=== PATIENT | male | born 2000 | race Caucasian/White ===

== ENCOUNTER 2022-05-04 17:43 | Emergency (ER) | payer MEDICAID, SELFPAY ==
[2022-05-04 17:55] VITALS: BP 121/75; PULSE 116; RESP 25; TEMP 36.1; O2SAT 100; BMI 16.0
--- NOTE | 2022-05-04 17:57 | ED_ITS ---
HPI - SOB/Dyspnea General Chief Complaint: Dyspnea Stated Complaint: asthma,sob Time Seen by Provider: 05/04/22 18:23 Related Data Allergies Allergy/AdvReac Type Severity Reaction Status Date / Time No Known Allergies Allergy Verified 05/04/22 17:57 [facility] Social History Social History Advance Directives: No Advance Directives Information Provided: No Physical Exam Vital Signs: Vital Signs: Last Vital Signs Temp 97.0 F 05/04/22 17:55 Pulse 116 H 05/04/22 17:55 Resp 25 H 05/04/22 17:55 BP 121/75 05/04/22 17:55 Pulse Ox 100 05/04/22 17:55 O2 Del Method 05/04/22 17:55 BMI result Body Mass Index 16.0 Course Course Course Narrative: RME - 21 y/o male with history of asthma presents to the ER for evaluation of asthma. He states he developed acute onset of SOB that started 1 hour ago while he was walking. No chest pain. No cough, fevers. Feels lightheaded in triage like he is going to pass out. SpO2 100%. Has lung sounds bilaterally, no wheezing. Developed left chest cramping. CXR Discharge Plan Discharge Clinical Impression: Shortness of breath Patient Disposition: Elopement Discharge Date/Time: 05/04/22 19:31
--- NOTE | 2022-05-04 18:02 | ECG_ITS ---
Test Reason : SOB Blood Pressure : / mmHG Vent. Rate : 094 BPM Atrial Rate : 094 BPM P-R Int : 142 ms QRS Dur : 096 ms QT Int : 356 ms P-R-T Axes : 068 094 059 degrees QTc Int : 445 ms Normal sinus rhythm Rightward axis Incomplete right bundle branch block Borderline ECG No previous ECGs available Referred By: Stacie Ruby Electronically Signed By:ESTEFANAI MEHTA
--- OUTSIDE RECORDS SUMMARY | 2022-05-04 18:09 | XMS_ITS | Continuity of Care Document ---
:2000 Author Organization [email or web address] Address [address] [address]- Care Team Providers Name Role Phone Vineet Reid MD Primary Care Physician Encounter [facility] Date(s): 09/24/20 - 10/24/20 [email or web address] [address] [address]- Allergies, Adverse Reactions, Alerts Substance Reaction Severity Status Cats Active Dogs Active Mites Active Pollen Active Red Dye rash Active Immunizations Given and Recorded Vaccine Date Status Refusal Reason influenza virus vaccine, inactivated 03/04/20 Given influenza virus vaccine, inactivated 01/11/19 Given influenza virus vaccine, inactivated1 01/30/17 Given influenza virus vaccine, inactivated 12/10/15 Given influenza virus vaccine, inactivated2 12/26/14 Given influenza virus vaccine, inactivated 12/28/13 Given influenza virus vaccine, inactivated3 12/15/10 Given influenza virus vaccine, inactivated4 11/25/09 Given tetanus-diphtheria toxoids (Td) 09/09/19 Given meningococcal group B vaccine 05/24/19 Given Meningococcal Conjugate Vaccine 05/24/19 Given Meningococcal Conjugate Vaccine5 08/19/13 Given Human Papillomavirus Vaccine 12/10/15 Given Human Papillomavirus Vaccine6 12/26/14 Given Human Papillomavirus Vaccine7 10/10/14 Given tetanus/diphtheria/pertussis, acel(Tdap)8 08/19/13 Given Hepatitis A Pediatric Vaccine9 07/23/12 Given Hepatitis A Pediatric Bdpwvia42 07/14/11 Given Influenza Inactive (IM) (oldterm)11 12/01/08 Given Influenza Inactive (IM) (oldterm) 01/03/08 Given Influenza Inactive (IM) (oldterm) 12/02/03 Given Influenza Inactive (IM) (oldterm) 02/27/03 Given Varicella Virus Qcluaip59 12/01/08 Given Varicella Virus Vaccine 06/05/03 Given Poliovirus Vaccine, Inactivated 06/19/07 Given Poliovirus Vaccine, Inactivated 09/01/03 Given Poliovirus Vaccine, Inactivated 02 Given Poliovirus Vaccine, Inactivated 02 Given Measles/Mumps/Rubella Virus Vaccine 06/19/07 Given Measles/Mumps/Rubella Virus Vaccine 06/05/03 Given diphtheria/tetanus/pertussis, acel(DTaP) 06/19/07 Given diphtheria/tetanus/pertussis, acel(DTaP) 09/01/03 Given diphtheria/tetanus/pertussis, acel(DTaP) 02 Given diphtheria/tetanus/pertussis, acel(DTaP) 02 Given diphtheria/tetanus/pertussis, acel(DTaP) 02 Given Pneumococcal Conjugate (PCV7) (oldterm) 05/28/04 Given Pneumococcal Conjugate (PCV7) (oldterm) 02 Given Pneumococcal Conjugate (PCV7) (oldterm) 02 Given Pneumococcal Conjugate (PCV7) (oldterm) 02 Given Haemophilus B Conj Vaccine (oldterm) 09/01/03 Given Haemophilus B Conj Vaccine (oldterm) 02 Given Haemophilus B Conj Vaccine (oldterm) 02 Given Haemophilus B Conj Vaccine (oldterm) 02 Given Hepatitis B Vaccine (old term) 02/27/03 Given Hepatitis B Vaccine (old term) 02 Given Hepatitis B Vaccine (old term) 02 Given 1Result Comment: [01/30/2017] [facility] [id number] [id number] Comment: [12/26/2014] SAS3 Admin Note: vis 10/05/10 vis given Admin Note: Fluzone VIS-10/20/200993963Ydpvbt Comment: [08/19/2013] KENDELL MARTINEZ MD6Result Comment: [12/26/2014] [id number] Comment: [10/10/2014] [id number] Comment: [08/19/2013] KENDELL MARTINEZ MD9Admin Note: VIS Admin Note: VIS 01/04/2011410121Pdjuy Note: VIS 10/21/2008325729Bsdzn Note: VIS 03/22/06 Medications ProAir HFA 90 mcg/inh inhalation aerosol with adapter 2, puffs, Inhalation, Every 4 hours, PRN, # 1 each, Refills 0, Tot. 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 Sex
--- OUTSIDE RECORDS SUMMARY | 2022-05-04 18:09 | XMS_ITS | Continuity of Care Document ---
:2002 Author Organization [facility] Address Unavailable , Care Team Providers Name Role Phone Joy Kelly MD Primary Care Physician Encounter [facility] NBR [id number] Date(s): 10/05/21 - 10/12/21 [facility] Encounter Diagnosis Atopic dermatitis (Discharge Diagnosis) - 10/05/21 Attending Physician: Afsaneh Alejandra NP Referring Physician: Joy Kelly MD Allergies, Adverse Reactions, Alerts Substance Reaction Severity Status Cats Active Dogs Active Mites Active Pollen Active Red Dye rash Active Immunizations Given and Recorded Vaccine Date Status Refusal Reason SARS-CoV-2 (COVID-19) Ad26 vaccine 06/29/21 Recorded meningococcal group B vaccine 12/02/20 Given meningococcal group B vaccine 05/24/19 Given influenza virus vaccine, inactivated 12/02/20 Given influenza virus vaccine, inactivated 03/04/20 Given influenza virus vaccine, inactivated 01/11/19 Given influenza virus vaccine, inactivated1 01/30/17 Given influenza virus vaccine, inactivated 12/10/15 Given influenza virus vaccine, inactivated2 12/26/14 Given influenza virus vaccine, inactivated 12/28/13 Given influenza virus vaccine, inactivated3 12/15/10 Given influenza virus vaccine, inactivated4 11/25/09 Given tetanus-diphtheria toxoids (Td) 09/09/19 Given Meningococcal Conjugate Vaccine 05/24/19 Given Meningococcal Conjugate Vaccine5 08/19/13 Given Human Papillomavirus Vaccine 12/10/15 Given Human Papillomavirus Vaccine6 12/26/14 Given Human Papillomavirus Vaccine7 10/10/14 Given tetanus/diphtheria/pertussis, acel(Tdap)8 08/19/13 Given Hepatitis A Pediatric Vaccine9 07/23/12 Given Hepatitis A Pediatric Fuvvlcq10 07/14/11 Given Influenza Inactive (IM) (oldterm)11 12/01/08 Given Influenza Inactive (IM) (oldterm) 01/03/08 Given Influenza Inactive (IM) (oldterm) 12/02/03 Given Influenza Inactive (IM) (oldterm) 02/27/03 Given Varicella Virus Nutjsmh82 12/01/08 Given Varicella Virus Vaccine 06/05/03 Given [...] (old term) 02 Given 1Result Comment: [01/30/2017] [facility][NOTE 3] [id number] 412Result Comment: [12/26/2014] SAS3 Admin Note: vis 10/05/10 vis given Admin Note: Fluzone VIS-10/20/200970403Zhctal Comment: [08/19/2013] KENDELL MARTINEZ MD6Result Comment: [12/26/2014] [id number] Comment: [10/10/2014] [id number] Comment: [08/19/2013] KENDELL MARTINEZ MD9Admin Note: VIS 01/04/201110 Admin Note: VIS 01/04/2011443292Rzrlp Note: VIS 10/21/2008629381Xeoml Note: VIS 03/22/06 Medications Adderall XR 15 mg oral capsule, extended release 1 capsule = 15 mg, By Mouth, Daily in AM, For ADHD, # 60 capsule, 0 Refills, Maintenance, 08/20/21 14:06:00 EDT, ER Capsule, [facility], Partial fill upon patient request if the prescription isfor a schedule II opioid drug., 1 capsule By Mout... Start Date: 08/20/21 Stop Date: 10/19/21 Status: OrderedPepcid 20 mg oral tablet 1 tablet = 20 mg, By Mouth, Daily, # 30 tablet, 0 Refills, Maintenance, 12/02/20 14:19:00 EDT, [place], Partial fill upon patient request if the prescription is for a schedule II opioid drug. Start Date: 12/02/20 Status: OrderedQnasl 80 mcg/inh nasal spray 2 sprays, Nares, Both, Daily, (not to exceed 4 doses/day), # 8.7 Gm, 0 Refills, Maintenance, 06/22/21 13:33:00 EDT, [place], Partial fill upon patient request if the prescription is for a schedule II opioid drug. Start Date: 06/22/21 Status: Orderedtriamcinolone 0.1% topical cream 1 application, Topically, 2 times a day, for 14 days, APPLY TOPICALLY TO AFFECTED AREA(S) TWICE DAILY FOR 14 DAYS, # 60 Gm, 0 Refills, Acute 10/19/21 13:41:00 EDT, 10/05/21 13:41:00 EDT, Cream, [facility], Partial fill upon patient request if... 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) Asthma, mild Active intermittent(Confirmed)(Stable) Well adult exam(Confirmed) Active Seasonal Allergic Rhinitis(Confirmed) Active Diagnosis Diagnosis Type Effective Dates Health Clinical Infor mant Status Service Atopic dermatitis Discharge 10/05/21 Diagnosis Vital Signs Most recent to oldest [Reference Range]: 1 Height 190.5 cm (10/05/21 1:04 PM) Weight 55.8 kg (10/05/21 1:04 PM) Oxygen Saturation [94-100 %] 99 % (10/05/21 1:04 PM) Pulse Rate [55-90 bpm] 70 bpm (10/05/21 1:04 PM) Body Mass Index [18.5-24.99] 15.38 *L* (10/05/21 1:04 PM) Blood Pressure [90-138/55-84 mm Hg] 110/70 mm Hg (10/05/21 1:04 PM) Blood pressure sites Arm, left (10/05/21 1:04 PM) Dry Weight 55.8 kg (10/05/21 1:04 PM) Social History Social History Type Response Tobacco Tobacco user in household: Y es. Sex
--- OUTSIDE RECORDS SUMMARY | 2022-05-04 18:09 | XMS_ITS | Continuity of Care Document ---
:2002 Author Organization [employer] Address 83 [facility] [address] [place] [address]- Care Team Providers Name Role Phone Joy Kelly MD Primary Care Physician Encounter [facility] Date(s): 10/04/21 - 11/03/21 [facility] 83 [facility] [address] [place] [address]- Allergies, Adverse Reactions, Alerts Substance Reaction Severity [...] Pediatric Vaccine9 07/23/12 Given Hepatitis A Pediatric Oszkodv81 07/14/11 Given Influenza Inactive (IM) (oldterm)11 12/01/08 Given Influenza Inactive (IM) (oldterm) 01/03/08 Given Influenza Inactive (IM) (oldterm) 12/02/03 Given Influenza Inactive (IM) (oldterm) 02/27/03 Given Varicella Virus Mrpqsas36 12/01/08 Given Varicella Virus Vaccine 06/05/03 Given [...] (old term) 02 Given 1Result Comment: [01/30/2017] [facility] [id number] [id number] Comment: [12/26/2014] SAS3 Admin Note: vis 10/05/10 vis given Admin Note: Fluzone VIS-10/20/200929429Swsmgd Comment: [08/19/2013] KENDELL MARTINEZ MD6Result Comment: [12/26/2014] [id number] Comment: [10/10/2014] [id number] Comment: [08/19/2013] KENDELL MARTINEZ MD9Admin Note: VIS 01/04/201110 Admin Note: VIS 01/04/2011269405Uwfxl Note: VIS 10/21/2008934551Yxwny Note: VIS 03/22/06 Medications Adderall XR 15 [...] Gm, 0 Refills, Maintenance, 06/22/21 13:33:00 EDT, [place], Partial fill upon patient request if the prescription is for a schedule II opioid drug. 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 Sex
--- OUTSIDE RECORDS SUMMARY | 2022-05-04 18:09 | XMS_ITS | Continuity of Care Document ---
:2002 Author Organization [employer] Address [address] [address]- Care Team Providers Name Role Phone Vineet Reid MD Primary Care Physician Encounter [facility] Date(s): 05/24/19 - 06/03/[address] [address]- [facility] Attending Physician: Admtr, Barbara Allergies, Adverse Reactions, Alerts Substance Reaction Severity Status Cats Active Dogs Active Mites Active Red Dye rash Active Immunizations Given and Recorded Vaccine Date Status Refusal Reason meningococcal group B vaccine 05/24/19 Given Meningococcal Conjugate Vaccine 05/24/19 Given Meningococcal Conjugate Vaccine1 08/19/13 Given influenza virus vaccine, inactivated 01/11/19 Given influenza virus vaccine, inactivated2 01/30/17 Given influenza virus vaccine, inactivated 12/10/15 Given influenza virus vaccine, inactivated3 12/26/14 Given influenza virus vaccine, inactivated 12/28/13 Given influenza virus vaccine, inactivated4 12/15/10 Given influenza virus vaccine, inactivated5 11/25/09 Given Human Papillomavirus Vaccine 12/10/15 Given Human Papillomavirus Vaccine6 12/26/14 Given Human Papillomavirus Vaccine7 10/10/14 Given tetanus/diphtheria/pertussis, acel(Tdap)8 08/19/13 Given Hepatitis A Pediatric Vaccine9 07/23/12 Given Hepatitis A Pediatric Erekqaq88 07/14/11 Given Influenza Inactive (IM) (oldterm)11 12/01/08 Given Influenza Inactive (IM) (oldterm) 01/03/08 Given Influenza Inactive (IM) (oldterm) 12/02/03 Given Influenza Inactive (IM) (oldterm) 02/27/03 Given Varicella Virus Snwvzzd30 12/01/08 Given Varicella Virus Vaccine 06/05/03 Given [...] Vaccine (old term) 02 Given 1Result Comment: [08/19/2013] KENDELL MARTINEZ MD2Result Comment: [01/30/2017] [facility] [id number] 413Result Comment: [12/26/2014] BZW8Zemuw Note: vis 10/05/10 vis given Admin Note: Fluzone VIS-10/20/200950230Nqfyfy Comment: [12/26/2014] YEU5Edozpy Comment: [10/10/2014] HY5Oswhhk Comment: [08/19/2013] KENDELL MARTINEZ MD9Admin Note: VIS 01/04/2011977390Avgaq Note: VIS 01/04/201111 Admin Note: VIS 10/21/2008934527Sszvn Note: VIS 03/22/06 Medications Aerochamber See Instructions, # 1 each, Maintenance, use with albuterol, 08/18/18 14:09:49 EDT, Compound Start Date: 08/18/18 Status: Orderedcetirizine 10 mg oral tablet 1 tablet = 10 mg, By Mouth, 2 times a day, # 60 tablet, 11 Refills, Maintenance, 05/22/18 10:38:52 EDT, Tablet Start Date: 05/22/18 Stop Date: 05/17/19 Status: OrderedFlonase 50 mcg/inh nasal spray 1 sprays, Nares, Both, 2 times a day, PRN allergy, # 16 Gm, 0 Refills, Maintenance, 08/18/18 10:45:07 EDT, [place], 1 sprays Nares, Both 2 times a day,PRN:allergy Start Date: 08/18/18 Status: OrderedProAir HFA 90 mcg/inh inhalation aerosol with adapter 2, puffs, Inhalation, Every 4 hours, PRN, # 1 each, Refills 0, Tot. Refills 0, Maintenance, 05/28/1917:13:08 EDT, Route to Pharmacy Electronically, [id number], [facility]/pharmacy #[id number] Start Date: 05/28/18 Status: OrderedXopenex HFA 45 mcg/inh inhalation aerosol 2 puffs, Inhalation, Every 4 hours, PRN for wheezing, # 15 Gm, 6 Refills, Maintenance, 08/18/18 10:41:39 EDT, Aerosol Start Date: 08/18/18 Status: OrderedXopenex HFA 45 mcg/inh inhalation aerosol See Instructions, PRN for wheezing, 2-6 puffs Inhalation Every 4 hours as needed for cough, shortness of breath or wheeze use with spacer chamber, # 1 each, 0 Refills, Maintenance, 05/24/19 15:50:00 EDT, Aerosol, [facility]/pharmacy #[id number], 188, cm, ... 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 Sex
--- OUTSIDE RECORDS SUMMARY | 2022-05-04 18:09 | XMS_ITS | Continuity of Care Document ---
:2002 Author Organization [facility] Address Unavailable , Care Team Providers Name Role Phone Vineet Reid MD Primary Care Physician Encounter [facility] Date(s): 04/20/21 - 05/20/21 [facility] Attending Physician: Admtr, Ar8 Allergies, Adverse Reactions, Alerts Substance Reaction Severity Status Cats Active Dogs Active Mites Active Pollen Active Red Dye rash Active Immunizations Given and Recorded Vaccine Date Status Refusal Reason meningococcal group B vaccine 12/02/20 Given meningococcal [...] Pediatric Vaccine9 07/23/12 Given Hepatitis A Pediatric Jcrdxzj10 07/14/11 Given Influenza Inactive (IM) (oldterm)11 12/01/08 Given Influenza Inactive (IM) (oldterm) 01/03/08 Given Influenza Inactive (IM) (oldterm) 12/02/03 Given Influenza Inactive (IM) (oldterm) 02/27/03 Given Varicella Virus Urzcjks43 12/01/08 Given Varicella Virus Vaccine 06/05/03 Given [...] (old term) 02 Given 1Result Comment: [01/30/2017] [facility] [id number] [id number] Comment: [12/26/2014] SAS3 Admin Note: vis 10/05/10 vis given Admin Note: Fluzone VIS-10/20/200958641Bnfjyw Comment: [08/19/2013] KENDELL MARTINEZ DD4Hjoufx Comment: [12/26/2014] RSU2Qebyjp Comment: [10/10/2014] RD6Mypqqs Comment: [08/19/2013] KENDELL MARTINEZ WB5Mbkor Note: VIS 01/04/201110 Admin Note: VIS 01/04/2011273814Hscqu Note: VIS 10/21/2008560458Iwdrz Note: VIS 03/22/06 Medications Adderall XR 10 mg oral capsule, extended release 1 capsule = 10 mg, By Mouth, Daily in AM, # 30 capsule, 0 Refills, Maintenance, 04/21/21 16:00:00 EST, ER Capsule, [facility]/pharmacy #[id number], Partial fill upon patient request if the prescription is for a schedule II opioid drug., 1 capsule By Mouth Daily in... Start Date: 04/21/21 Status: OrderedPepcid 20 mg oral tablet 1 tablet = 20 mg, By Mouth, Daily, # 30 tablet, 0 Refills, Maintenance, 12/02/20 14:19:00 EDT, Tablet, Partial fill upon patient request if the prescription is for a schedule II opioid drug. 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 Sex
--- OUTSIDE RECORDS SUMMARY | 2022-05-04 18:09 | XMS_ITS | Continuity of Care Document ---
:2002 Author Organization [employer] Address Unavailable , Care Team Providers Name Role Phone Vineet Reid MD [id number] Date(s): 03/17/21 - 04/16/21 [facility] Allergies, Adverse Reactions, Alerts Substance Reaction Severity [...] Pediatric Vaccine9 07/23/12 Given Hepatitis A Pediatric Rpbjzae93 07/14/11 Given Influenza Inactive (IM) (oldterm)11 12/01/08 Given Influenza Inactive (IM) (oldterm) 01/03/08 Given Influenza Inactive (IM) (oldterm) 12/02/03 Given Influenza Inactive (IM) (oldterm) 02/27/03 Given Varicella Virus Gydfipg36 12/01/08 Given Varicella Virus Vaccine 06/05/03 Given [...] (old term) 02 Given 1Result Comment: [01/30/2017] [facility] [id number] 412Result Comment: [12/26/2014] SAS3 Admin Note: vis 10/05/10 vis given Admin Note: Fluzone VIS-10/20/200972328Eydcfu Comment: [08/19/2013] KENDELL MARTINEZ MD6Result Comment: [12/26/2014] ZBI1Xlhxgc Comment: [10/10/2014] SS8Crfpll Comment: [08/19/2013] KENDELL MARTINEZ MD9Admin Note: VIS 01/04/201110 Admin Note: VIS 01/04/2011457260Zkjdf Note: VIS Admin Note: VIS 03/22/06 Medications Pepcid 20 mg oral tablet 1 tablet = [...] 0 Refills, Maintenance, 12/02/20 14:51:00 EDT, [facility]erosol, [id number], 189, cm, 12/02/20 14:14:00 EDT, Height, [...]
--- OUTSIDE RECORDS SUMMARY | 2022-05-04 18:09 | XMS_ITS | Continuity of Care Document ---
:2002 Author Organization [employer] Address [address] [address]- Care Team Providers Name Role Phone Vineet Reid MD Primary Care Physician Encounter [facility] [id number] Date(s): 03/04/20 - 03/11/20 [facility] [address] [address]- Attending Physician: Vineet Reid MD Allergies, Adverse Reactions, Alerts Substance Reaction [...] Pediatric Vaccine9 07/23/12 Given Hepatitis A Pediatric Nxtogvp70 07/14/11 Given Influenza Inactive (IM) (oldterm)11 12/01/08 Given Influenza Inactive (IM) (oldterm) 01/03/08 Given Influenza Inactive (IM) (oldterm) 12/02/03 Given Influenza Inactive (IM) (oldterm) 02/27/03 Given Varicella Virus Bilzpbb69 12/01/08 Given Varicella Virus Vaccine 06/05/03 Given [...] (old term) 02 Given 1Result Comment: [01/30/2017] [facility] [address] [phone] 412Result Comment: [12/26/2014] SAS3 Admin Note: vis 10/05/10 vis given Admin Note: Fluzone VIS-10/20/200983795Hdorne Comment: [08/19/2013] KENDELL MARTINEZ MD6Result Comment: [12/26/2014] ISZ9Drogoy Comment: [10/10/2014] VQ2Nlfwny Comment: [08/19/2013] KENDELL MARTINEZ MD9Admin Note: VIS 01/04/201110 Admin Note: VIS 01/04/2011781173Rjmdd Note: VIS Admin Note: VIS 03/22/06 Medications Aerochamber See Instructions, [...] Gm, 0 Refills, Maintenance, 08/18/18 10:45:07 EDT, [place], 1 sprays Nares, Both 2 times a day,PRN:allergy Start Date: 08/18/18 Status: OrderedProAir HFA 90 mcg/inh inhalation aerosol with adapter 2, puffs, Inhalation, Every 4 hours, PRN, # 1 each, Refills 0, Tot. Refills 0, Maintenance, 05/28/1917:13:08 EDT, Route to Pharmacy Electronically, [id number], [facility]/pharmacy #1111 Start Date: 05/28/18 Status: OrderedQnasl Daily, 0 Refills, Maintenance, 08/30/19 12:07:00 EDT Start Date: 08/30/19 Status: OrderedXopenex HFA 45 mcg/inh inhalation aerosol [...] 0 Refills, Maintenance, 05/24/19 15:50:00 EDT, Aerosol, [facility]/pharmacy #0838, 188, cm, ... 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 Sex
--- OUTSIDE RECORDS SUMMARY | 2022-05-04 18:09 | XMS_ITS | Continuity of Care Document ---
:2002 Author Organization [facility] Address Unavailable , Care Team Providers Name Role Phone Vineet Reid MD Primary Care Physician Encounter [facility] Date(s): 10/06/20 - 11/05/20 [facility] Allergies, Adverse Reactions, Alerts Substance Reaction Severity [...] Pediatric Vaccine9 07/23/12 Given Hepatitis A Pediatric Yyyiixq48 07/14/11 Given Influenza Inactive (IM) (oldterm)11 12/01/08 Given Influenza Inactive (IM) (oldterm) 01/03/08 Given Influenza Inactive (IM) (oldterm) 12/02/03 Given Influenza Inactive (IM) (oldterm) 02/27/03 Given Varicella Virus Imflfbu48 12/01/08 Given Varicella Virus Vaccine 06/05/03 Given [...] (old term) 02 Given 1Result Comment: [01/30/2017] [facility] [id number] 912 412Result Comment: [12/26/2014] SAS3 Admin Note: vis 10/05/10 vis given Admin Note: Fluzone VIS-10/20/200970298Pmwsci Comment: [08/19/2013] KENDELL MARTINEZ MD6Result Comment: [12/26/2014] HAP8Jpduyz Comment: [10/10/2014] EC2Daojzp Comment: [08/19/2013] KENDELL MARTINEZ MD9Admin Note: VIS Admin Note: VIS 01/04/2011252013Rtfto Note: VIS 10/21/2008259322Dyfet Note: VIS 03/22/06 Medications predniSONE 20 mg oral tablet 3 tablet = 60 mg, By Mouth, Daily, for 7 days, # 21 tablet, 0 Refills, Acute 11/07/20 8:14:00 EDT, 10/31/20 8:14:00 EDT, Tablet, [facility]/pharmacy #[id number], Partial fill upon patient request if the prescription is for a schedule II opioid drug., 193, cm, 10/12... Start Date: 10/31/20 Stop Date: 11/07/20 Status: OrderedProAir HFA 90 mcg/inh inhalation aerosol with adapter 2, puffs, Inhalation, Every 4 hours, PRN, # 1 each, Refills 0, Tot. Refills 0, Maintenance, 05/28/1917:13:08 EDT, Route to Pharmacy Electronically, [id number], 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 Sex
--- OUTSIDE RECORDS SUMMARY | 2022-05-04 18:10 | XMS_ITS | Continuity of Care Document ---
:2002 Author Organization [facility] Address Unavailable , Care Team Providers Name Role Phone Joy Kelly MD Primary Care Physician Encounter [facility] Date(s): 06/22/21 - 08/13/21 [place] Attending Physician: Janette Olvera Allergies, Adverse Reactions, Alerts Substance Reaction Severity [...] Pediatric Vaccine9 07/23/12 Given Hepatitis A Pediatric Aqtazzd57 07/14/11 Given Influenza Inactive (IM) (oldterm)11 12/01/08 Given Influenza Inactive (IM) (oldterm) 01/03/08 Given Influenza Inactive (IM) (oldterm) 12/02/03 Given Influenza Inactive (IM) (oldterm) 02/27/03 Given Varicella Virus Vkzukvt79 12/01/08 Given Varicella Virus Vaccine 06/05/03 Given [...] (old term) 02 Given 1Result Comment: [01/30/2017] [facility] [id number] 912 412Result Comment: [12/26/2014] SAS3 Admin Note: vis 10/05/10 vis given Admin Note: Fluzone VIS-10/20/200965210Wklzmq Comment: [08/19/2013] KENDELL MARTINEZ AZ4Nbigkz Comment: [12/26/2014] EOE6Yhakag Comment: [10/10/2014] AX4Zigedo Comment: [08/19/2013] KENDELL MARTINEZ HV8Olzuk Note: VIS 01/04/201110 Admin Note: VIS 01/04/2011594741Mxgtr Note: VIS 10/21/2008158788Amqup Note: VIS 03/22/06 Medications Adderall XR 10 mg oral capsule, extended release 1 capsule = 10 mg, By Mouth, Daily in AM, # 30 capsule, 0 Refills, Maintenance, 04/21/21 16:00:00 EST, ER Capsule, [facility]/pharmacy #[id number], Partial fill upon patient request if the prescription is for a schedule II opioid drug., 1 capsule By Mouth Daily in... Start Date: 04/21/21 Status: OrderedAdderall XR 15 mg oral capsule, extended release 1 capsule = 15 mg, By Mouth, Daily in AM, For ADHD, # 30 capsule, 0 Refills, Maintenance, 07/21/21 14:06:00 EDT, ER Capsule, [facility]/pharmacy #[id number], Partial fill upon patient request if the prescription isfor a schedule II opioid drug., 1 capsule By Mout... Start Date: 07/21/21 Stop Date: 08/20/21 Status: OrderedPepcid 20 mg oral tablet 1 [...] Gm, 0 Refills, Maintenance, 06/22/21 13:33:00 EDT, [place], Partial fill upon patient request if the prescription is for a schedule II opioid drug. Start Date: 06/22/21 Status: OrderedXopenex HFA 45 mcg/inh inhalation aerosol 2 puffs, By Mouth, Every 4 hours, PRN for wheezing, # 2 each, 0 Refills, Maintenance, 07/23/21 9:59:00 EDT, Aerosol, [facility]/pharmacy #[id number], 189, cm, 06/22/21 13:30:00 EDT, Height, [...]
--- OUTSIDE RECORDS SUMMARY | 2022-05-04 18:10 | XMS_ITS | Continuity of Care Document ---
:2002 Author Organization [facility] Address [address] [address]- Care Team Providers Name Role Phone Vineet Reid MD Primary Care Physician Encounter [facility] Date(s): 09/09/19 - 10/09/19 [facility] [address] [address]- [facility] Attending Physician: AdmtrBarbara Allergies, Adverse Reactions, Alerts Substance Reaction Severity Status Cats Active Dogs Active Mites Active Red Dye rash Active Immunizations Given and Recorded Vaccine Date Status Refusal Reason tetanus-diphtheria toxoids (Td) 09/09/19 Given meningococcal group [...] Pediatric Vaccine9 07/23/12 Given Hepatitis A Pediatric Jnigagq62 07/14/11 Given Influenza Inactive (IM) (oldterm)11 12/01/08 Given Influenza Inactive (IM) (oldterm) 01/03/08 Given Influenza Inactive (IM) (oldterm) 12/02/03 Given Influenza Inactive (IM) (oldterm) 02/27/03 Given Varicella Virus Jtidlnc08 12/01/08 Given Varicella Virus Vaccine 06/05/03 Given [...] Comment: [08/19/2013] KENDELL MARTINEZ MD2Result Comment: [01/30/2017] [facility] [address] 912 413Result Comment: [12/26/2014] DXH2Lwroy Note: vis 10/05/10 vis given Admin Note: Fluzone VIS-10/20/200924213Qoouen Comment: [12/26/2014] STW2Ktozel Comment: [10/10/2014] AQ0Imxetx Comment: [08/19/2013] KENDELL MARTINEZ MD9Admin Note: VIS 01/04/2011143503Wzloq Note: VIS 01/04/201111 Admin Note: VIS 10/21/2008937233Fyjvx Note: VIS 03/22/06 Medications Aerochamber See Instructions, [...] Gm, 0 Refills, Maintenance, 08/18/18 10:45:07 EDT, [place], 1 sprays Nares, Both 2 times a day,PRN:allergy Start Date: 08/18/18 Status: OrderedProAir HFA 90 mcg/inh inhalation aerosol with adapter 2, puffs, Inhalation, Every 4 hours, PRN, # 1 each, Refills 0, Tot. Refills 0, Maintenance, 05/28/1917:13:08 EDT, Route to Pharmacy Electronically, [id number], [facility]/pharmacy #[id number] Start Date: 05/28/18 Status: OrderedQnasl Daily, [...] 0 Refills, Maintenance, 05/24/19 15:50:00 EDT, Aerosol, [facility]/pharmacy #[id number], 188, cm, ... 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 Sex
--- OUTSIDE RECORDS SUMMARY | 2022-05-04 18:10 | XMS_ITS | Continuity of Care Document ---
:2002 Author Organization [email or web address] Address Unavailable , Care Team Providers Name Role Phone Joy Kelly MD Primary Care Physician Encounter [facility] Date(s): 06/09/21 - 07/14/21 [facility] Attending Physician: Joy Kelly MD Allergies, Adverse Reactions, [...] Pediatric Vaccine9 07/23/12 Given Hepatitis A Pediatric Yvtckov12 07/14/11 Given Influenza Inactive (IM) (oldterm)11 12/01/08 Given Influenza Inactive (IM) (oldterm) 01/03/08 Given Influenza Inactive (IM) (oldterm) 12/02/03 Given Influenza Inactive (IM) (oldterm) 02/27/03 Given Varicella Virus Kfbhyzp60 12/01/08 Given Varicella Virus Vaccine 06/05/03 Given [...] (old term) 02 Given 1Result Comment: [01/30/2017] [facility] [address] 912 412Result Comment: [12/26/2014] SAS3 Admin Note: vis 10/05/10 vis given Admin Note: Fluzone VIS-10/20/200985797Eeottx Comment: [08/19/2013] KENDELL MARTINEZ ED8Ddorae Comment: [12/26/2014] QOL8Njwlno Comment: [10/10/2014] QB6Atskaf Comment: [08/19/2013] KENDELL MARTINEZ IJ5Ebxhb Note: VIS 01/04/201110 Admin Note: VIS 01/04/2011220370Qycqo Note: VIS 10/21/2008353544Tskxp Note: VIS 03/22/06 Medications Adderall XR 10 mg oral capsule, extended release 1 capsule = 10 mg, By Mouth, Daily in AM, # 30 capsule, 0 Refills, Maintenance, 04/21/21 16:00:00 EST, ER Capsule, [facility]/pharmacy #[id number], Partial fill upon patient request if [...] Gm, 0 Refills, Maintenance, 06/22/21 13:33:00 EDT, [place], Partial fill upon patient request if the prescription is for a schedule II opioid drug. Start Date: 06/22/21 Status: OrderedXopenex HFA 45 mcg/inh inhalation aerosol 2 puffs, By Mouth, Every 4 hours, PRN for wheezing, # 2 each, 0 Refills, Maintenance, 12/02/20 14:51:00 EDT, Aerosol, [facility]/pharmacy #[id number], 189, cm, 12/02/20 14:14:00 EDT, Height, [...]
--- OUTSIDE RECORDS SUMMARY | 2022-05-04 18:10 | XMS_ITS | Continuity of Care Document ---
:2002 Author Organization [facility] Address [address] [address]- Care Team Providers Name Role Phone Vineet Reid MD Primary Care Physician [id number] Date(s): 09/09/19 - 09/16/19 [facility] [address] [address]- [facility] Encounter Diagnosis Laceration of knee (Discharge Diagnosis) - 09/09/19 Encounter for removal of sutures (Discharge Diagnosis) - 09/09/19 Attending Physician: Vineet Reid MD Allergies, Adverse [...] Pediatric Vaccine9 07/23/12 Given Hepatitis A Pediatric Ohgfexr50 07/14/11 Given Influenza Inactive (IM) (oldterm)11 12/01/08 Given Influenza Inactive (IM) (oldterm) 01/03/08 Given Influenza Inactive (IM) (oldterm) 12/02/03 Given Influenza Inactive (IM) (oldterm) 02/27/03 Given Varicella Virus Jnylspq21 12/01/08 Given Varicella Virus Vaccine 06/05/03 Given [...] Comment: [08/19/2013] KENDELL MARTINEZ MD2Result Comment: [01/30/2017] [facility] [id number] 912 413Result Comment: [12/26/2014] SED3Nswql Note: vis 10/05/10 vis given Admin Note: Fluzone VIS-10/20/200988860Xmbopq Comment: [12/26/2014] MIB9Msynsc Comment: [10/10/2014] HA8Vlctmr Comment: [08/19/2013] KENDELL MARTINEZ HF7Tlnbg Note: VIS 01/04/2011307757Ilepx Note: VIS Admin Note: VIS 10/21/2008894844Jaszt Note: VIS 03/22/06 Medications Aerochamber See Instructions, [...] Gm, 0 Refills, Maintenance, 08/18/18 10:45:07 EDT, [place], 1 sprays Nares, Both 2 times a day,PRN:allergy Start Date: 08/18/18 Status: OrderedProAir HFA 90 mcg/inh inhalation aerosol with adapter 2, puffs, Inhalation, Every 4 hours, PRN, # 1 each, Refills 0, Tot. Refills 0, Maintenance, 05/28/1917:13:08 EDT, Route to Pharmacy Electronically, [id number], [facility]/pharmacy #[id number] Start Date: 05/28/18 Status: OrderedQnasl Daily, [...] 0 Refills, Maintenance, 05/24/19 15:50:00 EDT, Aerosol, [facility]/pharmacy #[id number], 188, cm, ... 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) Healthy child(Confirmed) Active Seasonal allergies(Confirmed) Active Diagnosis Diagnosis Type Effective Dates Health Clinical Infor mant Status Service Laceration of Discharge 09/09/19 knee Diagnosis Encounter for Discharge 09/09/19 removal of Diagnosis sutures Vital Signs Most recent to oldest [Reference Range]: 1 Weight 59.0 kg (09/09/19 8:59 AM) Temperature [96.8-100.4 DegF] 98.3 DegF (09/09/19 8:59 AM) Temperature Route Temporal (09/09/19 8:59 AM) Dry Weight 59.0 kg (09/09/19 8:59 AM) Dry Weight Obtained Via Standing scale (09/09/19 8:59 AM) Social History Social History Type Response Tobacco Other: Mom reports no smoker s in the house. Sex
--- OUTSIDE RECORDS SUMMARY | 2022-05-04 18:10 | XMS_ITS | Continuity of Care Document ---
:2002 Author Organization [facility] Address [address] [address]- Care Team Providers Name Role Phone Vineet Reid MD Primary Care Physician Encounter [facility] Date(s): 03/04/20 - 04/03/20 [facility] [address] [address]- Attending Physician: Admtr, Barbara Allergies, Adverse Reactions, [...] Pediatric Vaccine9 07/23/12 Given Hepatitis A Pediatric Tdruggi36 07/14/11 Given Influenza Inactive (IM) (oldterm)11 12/01/08 Given Influenza Inactive (IM) (oldterm) 01/03/08 Given Influenza Inactive (IM) (oldterm) 12/02/03 Given Influenza Inactive (IM) (oldterm) 02/27/03 Given Varicella Virus Baznckx35 12/01/08 Given Varicella Virus Vaccine 06/05/03 Given [...] 1Result Comment: [01/30/2017] [facility] [id number] 912 412Result Comment: [12/26/2014] SAS3 Admin Note: vis 10/05/10 vis given Admin Note: Fluzone VIS-10/20/200953517Amzvra Comment: [08/19/2013] KENDELL MARTINEZ MD6Result Comment: [12/26/2014] ILE9Bnzhwv Comment: [10/10/2014] BC9Zzgpke Comment: [08/19/2013] KENDELL MARTINEZ MD9Admin Note: VIS Admin Note: VIS 01/04/2011217578Jjxjx Note: VIS 10/21/2008383314Tmvtq Note: VIS 03/22/06 Medications Aerochamber See Instructions, [...] Gm, 0 Refills, Maintenance, 08/18/18 10:45:07 EDT, [place], 1 sprays Nares, Both 2 times a day,PRN:allergy Start Date: 08/18/18 Status: OrderedProAir HFA 90 mcg/inh inhalation aerosol with adapter 2, puffs, Inhalation, Every 4 hours, PRN, # 1 each, Refills 0, Tot. Refills 0, Maintenance, 05/28/1917:13:08 EDT, Route to Pharmacy Electronically, [id number], [facility]/pharmacy #[id number] Start Date: 05/28/18 Status: OrderedQnasl [...]
--- OUTSIDE RECORDS SUMMARY | 2022-05-04 18:10 | XMS_ITS | Continuity of Care Document ---
:2002 Author Organization [facility] Address Unavailable , Care Team Providers Name Role Phone Joy Kelly MD Primary Care Physician Encounter [facility] Date(s): 08/18/21 - 09/17/21 [facility] Attending Physician: Admtr, Ar8 Allergies, Adverse Reactions, [...] Pediatric Vaccine9 07/23/12 Given Hepatitis A Pediatric Txxsaxk06 07/14/11 Given Influenza Inactive (IM) (oldterm)11 12/01/08 Given Influenza Inactive (IM) (oldterm) 01/03/08 Given Influenza Inactive (IM) (oldterm) 12/02/03 Given Influenza Inactive (IM) (oldterm) 02/27/03 Given Varicella Virus Xslhnwv20 12/01/08 Given Varicella Virus Vaccine 06/05/03 Given [...] (old term) 02 Given 1Result Comment: [01/30/2017] [facility] [id number] 912 412Result Comment: [12/26/2014] SAS3 Admin Note: vis 10/05/10 vis given Admin Note: Fluzone VIS-10/20/200909567Wnbeeh Comment: [08/19/2013] KENDELL MARTINEZ MD6Result Comment: [12/26/2014] OCS9Erzevu Comment: [10/10/2014] CQ7Qkizrn Comment: [08/19/2013] KENDELL MARTINEZ MD9Admin Note: VIS 01/04/201110 Admin Note: VIS 01/04/2011828830Yhsuw Note: VIS 10/21/2008945525Ikhnw Note: VIS 03/22/06 Medications Adderall XR 15 mg oral capsule, extended release 1 capsule = 15 mg, By Mouth, Daily in AM, For ADHD, # 60 capsule, 0 Refills, Maintenance, 08/20/21 14:06:00 EDT, ER Capsule, [facility]/pharmacy #[id number], Partial fill upon patient request if [...] Gm, 0 Refills, Maintenance, 06/22/21 13:33:00 EDT, [place], Partial fill upon patient request if the prescription is for a schedule II opioid drug. Start Date: 06/22/21 Status: OrderedXopenex HFA 45 mcg/inh inhalation aerosol 2 puffs, By Mouth, Every 4 hours, PRN for wheezing, # 2 each, 0 Refills, Maintenance, 07/23/21 9:59:00 EDT, Aerosol, [facility]/pharmacy #[id number], 189, cm, 06/22/21 13:30:00 EDT, Height, [...]
--- OUTSIDE RECORDS SUMMARY | 2022-05-04 18:10 | XMS_ITS | Continuity of Care Document ---
:2002 Author Organization [facility] Address Unavailable , Care Team Providers Name Role Phone Vineet Reid MD Primary Care Physician Encounter [facility] [id number] Date(s): 04/20/21 - 04/27/21 [facility] Encounter Diagnosis Attention deficit disorder of childhood with hyperactivity (Discharge Diagnosis) - 04/21/21 Attending Physician: Joy Kelly MD Allergies, Adverse [...] Pediatric Vaccine9 07/23/12 Given Hepatitis A Pediatric Yvlwmze34 07/14/11 Given Influenza Inactive (IM) (oldterm)11 12/01/08 Given Influenza Inactive (IM) (oldterm) 01/03/08 Given Influenza Inactive (IM) (oldterm) 12/02/03 Given Influenza Inactive (IM) (oldterm) 02/27/03 Given Varicella Virus Obkmxlj40 12/01/08 Given Varicella Virus Vaccine 06/05/03 Given [...] (old term) 02 Given 1Result Comment: [01/30/2017] [facility] [id number] 912 412Result Comment: [12/26/2014] SAS3 Admin Note: vis 10/05/10 vis given Admin Note: Fluzone VIS-10/20/200976642Qkjcfq Comment: [08/19/2013] KENDELL MARTINEZ XA0Fdapfk Comment: [12/26/2014] BFR5Fwyihh Comment: [10/10/2014] OW1Qoypnw Comment: [08/19/2013] KENDELL MARTINEZ MD9Admin Note: VIS Admin Note: VIS 01/04/2011318336Gsyym Note: VIS 10/21/2008987267Hemin Note: VIS 03/22/06 Medications Adderall XR 10 mg oral capsule, extended release 1 capsule = 10 mg, By Mouth, Daily in AM, # 30 capsule, 0 Refills, Maintenance, 04/21/21 16:00:00 EST, ER Capsule, [facility]/pharmacy #[id number], Partial fill upon patient request if [...] 0 Refills, Maintenance, 12/02/20 14:51:00 EDT, Aerosol, [facility]/pharmacy #[id number], 189, cm, 12/02/20 14:14:00 EDT, Height, 55.8, kg, 12/02/20 14:14:00 EDT, Dry Weight Start Date: 12/02/20 Status: Ordered Problem List Condition Effective Dates Status Health Status Informant Atopic dermatitis(Confirmed) Active 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 Status Service Attention deficit Discharge 04/21/21 disorder of Diagnosis childhood with hyperactivity Social History Social History Type Response Tobacco Tobacco user in household: Y es. Sex
--- OUTSIDE RECORDS SUMMARY | 2022-05-04 18:10 | XMS_ITS | Continuity of Care Document ---
:2002 Author Organization [employer] Address [address] [address]- Care Team Providers Name Role Phone Vineet Reid MD Primary Care Physician Encounter [facility] Date(s): 12/20/19 - 01/19/20 [facility] [address] [address]- Allergies, Adverse Reactions, Alerts Substance Reaction Severity [...] Pediatric Vaccine9 07/23/12 Given Hepatitis A Pediatric Vudcivx66 07/14/11 Given Influenza Inactive (IM) (oldterm)11 12/01/08 Given Influenza Inactive (IM) (oldterm) 01/03/08 Given Influenza Inactive (IM) (oldterm) 12/02/03 Given Influenza Inactive (IM) (oldterm) 02/27/03 Given Varicella Virus Xsxuqsu67 12/01/08 Given Varicella Virus Vaccine 06/05/03 Given [...] Comment: [08/19/2013] KENDELL MARTINEZ MD2Result Comment: [01/30/2017] [facility] [address] 912 413Result Comment: [12/26/2014] SEX9Xyxvh Note: vis 10/05/10 vis given Admin Note: Fluzone VIS-10/20/200935015Wvbokv Comment: [12/26/2014] QRM5Kiyvjm Comment: [10/10/2014] GS6Mmsnos Comment: [08/19/2013] KENDELL MARTINEZ MD9Admin Note: VIS 01/04/2011101751Dypgr Note: VIS Admin Note: VIS Admin Note: VIS 03/22/06 Medications [...] Gm, 0 Refills, Maintenance, 08/18/18 10:45:07 EDT, [place], 1 sprays Nares, Both 2 times a day,PRN:allergy Start Date: 08/18/18 Status: OrderedProAir HFA 90 mcg/inh inhalation aerosol with adapter 2, puffs, Inhalation, Every 4 hours, PRN, # 1 each, Refills 0, Tot. Refills 0, Maintenance, 05/28/1917:13:08 EDT, Route to Pharmacy Electronically, [id number], [facility]/pharmacy #[id number] Start Date: 05/28/18 Status: OrderedQnasl Daily, [...] Maintenance, 05/24/19 15:50:00 EDT, Aerosol, [facility]/pharmacy #[id number], 188, cm, ... 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 Sex
--- OUTSIDE RECORDS SUMMARY | 2022-05-04 18:10 | XMS_ITS | Continuity of Care Document ---
:2002 Author Organization [employer] Address Unavailable , Care Team Providers Name Role Phone Vineet Reid MD Primary Care Physician Encounter [facility] Date(s): 12/02/20 - 12/09/20 [employer] Attending Physician: Vineet Reid MD Allergies, Adverse [...] Pediatric Vaccine9 07/23/12 Given Hepatitis A Pediatric Rcexffb63 07/14/11 Given Influenza Inactive (IM) (oldterm)11 12/01/08 Given Influenza Inactive (IM) (oldterm) 01/03/08 Given Influenza Inactive (IM) (oldterm) 12/02/03 Given Influenza Inactive (IM) (oldterm) 02/27/03 Given Varicella Virus Ygejjwk87 12/01/08 Given Varicella Virus Vaccine 06/05/03 Given [...] (old term) 02 Given 1Result Comment: [01/30/2017] [facility] [address] 912 412Result Comment: [12/26/2014] SAS3 Admin Note: vis 10/05/10 vis given Admin Note: Fluzone VIS-10/20/200942243Prmffp Comment: [08/19/2013] KENDELL MARTINEZ MD6Result Comment: [12/26/2014] KFH9Gaozqy Comment: [10/10/2014] MN9Zvlpbm Comment: [08/19/2013] KENDELL MARTINEZ MD9Admin Note: VIS 01/04/201110 Admin Note: VIS 01/04/2011048163Hyhgh Note: VIS 10/21/2008141902Krapt Note: VIS 03/22/06 Medications Pepcid 20 mg [...] adult exam(Confirmed) Active Seasonal Allergic Rhinitis(Confirmed) Active Vital Signs Most recent to oldest [Reference Range]: 1 Height 189 cm (12/02/20 2:14 PM) Weight 55.8 kg (12/02/20 2:14 PM) Pulse Rate [55-90 bpm] 60 bpm (12/02/20 2:14 PM) Body Mass Index [18.5-24.99] 15.62 *L* (12/02/20 2:14 PM) Blood Pressure [71-110/30-71 mm Hg] 104/70 mm Hg (12/02/20 2:14 PM) Blood pressure sites Arm, left (12/02/20 2:14 PM) Dry Weight 55.8 kg (12/02/20 2:14 PM) Social History Social History Type Response Tobacco Other: Mom reports no smoker s in the house. Sex
--- OUTSIDE RECORDS SUMMARY | 2022-05-04 18:10 | XMS_ITS | Continuity of Care Document ---
:2002 Author Organization [facility] Address [address] [facility] [address] [place] [address]- Care Team Providers Name Role Phone Joy Kelly MD Primary Care Physician Encounter [facility] Date(s): 10/05/21 - 11/04/21 [facility] [address] [facility] [address] [place] [address]- Attending Physician: Admtr, Ar8 Allergies, Adverse Reactions, [...] Pediatric Vaccine9 07/23/12 Given Hepatitis A Pediatric Kfxuycd28 07/14/11 Given Influenza Inactive (IM) (oldterm)11 12/01/08 Given Influenza Inactive (IM) (oldterm) 01/03/08 Given Influenza Inactive (IM) (oldterm) 12/02/03 Given Influenza Inactive (IM) (oldterm) 02/27/03 Given Varicella Virus Gltuhwg05 12/01/08 Given Varicella Virus Vaccine 06/05/03 Given [...] term) 02 Given 1Result Comment: [01/30/2017] [facility] [address] 912 412Result Comment: [12/26/2014] SAS3 Admin Note: vis 10/05/10 vis given Admin Note: Fl[employer] VIS-10/20/200909265Dmsmkr Comment: [08/19/2013] KENDELL MARTINEZ MD6Result Comment: [12/26/2014] VEX1Qstinb Comment: [10/10/2014] YW3Fpmlqy Comment: [08/19/2013] KENDELL MARTINEZ MD9Admin Note: VIS 01/04/201110 Admin Note: VIS 01/04/2011453599Uzflz Note: VIS 10/21/2008410266Lxwyc Note: VIS 03/22/06 Medications Adderall XR 15 [...] Gm, 0 Refills, Maintenance, 06/22/21 13:33:00 EDT, [place], Partial fill upon patient request if the [...] Tobacco user in household: Y es. Sex Care Team PersonnelName: Leticia JIN, Joy Waddell Address: [address] [place] [address] [place]s [place], [place] [address]
--- OUTSIDE RECORDS SUMMARY | 2022-05-04 18:10 | XMS_ITS | Continuity of Care Document ---
:2002 Author Organization [facility] Address [address] [address]- Care Team Providers Name Role Phone Vineet Reid MD Primary Care Physician Encounter [facility] Date(s): 05/24/19 - 05/31/19 [facility] [address] [address]- [facility] Attending Physician: Janette Olvera Allergies, Adverse Reactions, [...] Pediatric Vaccine9 07/23/12 Given Hepatitis A Pediatric Xdzsrsv39 07/14/11 Given Influenza Inactive (IM) (oldterm)11 12/01/08 Given Influenza Inactive (IM) (oldterm) 01/03/08 Given Influenza Inactive (IM) (oldterm) 12/02/03 Given Influenza Inactive (IM) (oldterm) 02/27/03 Given Varicella Virus Twkwyjt61 12/01/08 Given Varicella Virus Vaccine 06/05/03 Given [...] Comment: [08/19/2013] KENDELL MARTINEZ MD2Result Comment: [01/30/2017] [facility] [address] 912 413Result Comment: [12/26/2014] YOS7Aicfj Note: vis 10/05/10 vis given Admin Note: Fluzone VIS-10/20/200917869Zrndjq Comment: [12/26/2014] YOW0Fuihky Comment: [10/10/2014] BU6Tfpbig Comment: [08/19/2013] KENDELL MARTINEZ MD9Admin Note: VIS 01/04/2011300116Dcwgv Note: VIS Admin Note: VIS 10/21/2008563686Xoeqm Note: VIS 03/22/06 Medications Aerochamber See Instructions, [...] Gm, 0 Refills, Maintenance, 08/18/18 10:45:07 EDT, [place], 1 sprays Nares, Both 2 times a day,PRN:allergy Start Date: 08/18/18 Status: OrderedProAir HFA 90 mcg/inh inhalation aerosol with adapter 2, puffs, Inhalation, Every 4 hours, PRN, # 1 each, Refills 0, Tot. Refills 0, Maintenance, 05/28/1917:13:08 EDT, Route to Pharmacy Electronically, [id number], [facility]/pharmacy #[id number] Start Date: 05/28/18 Status: OrderedXopenex HFA [...] 0 Refills, Maintenance, 05/24/19 15:50:00 EDT, Aerosol, [facility]/pharmacy #[id number], 188, cm, ... 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) Healthy child(Confirmed) Active Seasonal allergies(Confirmed) Active Procedures Procedure Date Related Diagnosis Body Site Status None Completed Vital Signs Most recent to oldest [Reference Range]: 1 Height 188.0 cm (05/24/19 2:40 PM) Weight 57.2 kg (05/24/19 2:40 PM) Body Mass Index [18.5-24.99] 16.18 *L* (05/24/19 2:40 PM) Blood Pressure [80-130/50-80 mm Hg] 106/70 mm Hg (05/24/19 2:40 PM) Blood pressure sites Arm, left (05/24/19 2:40 PM) Dry Weight 57.2 kg (05/24/19 2:40 PM) Dry Weight Obtained Via Standing scale (05/24/19 2:40 PM) Social History Social History Type Response Tobacco Other: Mom reports no smoker s in the house. Sex
--- OUTSIDE RECORDS SUMMARY | 2022-05-04 18:10 | XMS_ITS | Continuity of Care Document ---
:2002 Author Organization [employer] Address [address] [address]- Care Team Providers Name Role Phone Vineet Reid MD Primary Care Physician Encounter [facility] Date(s): 10/20/20 - 10/27/20 [employer] [address] [address]- Encounter Diagnosis Cerumen impaction (Discharge Diagnosis) - 10/20/20 Attending Physician: Janette Olvera Allergies, Adverse Reactions, [...] Pediatric Vaccine9 07/23/12 Given Hepatitis A Pediatric Lnnglbe98 5/3/12 Given Influenza Inactive (IM) (oldterm)11 12/01/08 Given Influenza Inactive (IM) (oldterm) 01/03/08 Given Influenza Inactive (IM) (oldterm) 12/02/03 Given Influenza Inactive (IM) (oldterm) 02/27/03 Given Varicella Virus Dzeybak17 12/01/08 Given Varicella Virus Vaccine 06/05/03 Given [...] (old term) 02 Given 1Result Comment: [01/30/2017] [facility] [address] 912 412Result Comment: [12/26/2014] SAS3 Admin Note: vis 10/05/10 vis given Admin Note: Fluzone VIS-10/20/200958407Dtvkgh Comment: [08/19/2013] KENDELL MARTINEZ MB5Agtwwm Comment: [12/26/2014] LXS9Kqwhyt Comment: [10/10/2014] DM9Kjtuor Comment: [08/19/2013] KENDELL MARTINEZ MD9Admin Note: VIS Admin Note: VIS 01/04/2011521724Ksoxy Note: VIS 10/21/2008598775Qdelf Note: VIS 03/22/06 Medications ProAir HFA 90 mcg/inh inhalation aerosol with adapter 2, puffs, Inhalation, Every 4 hours, PRN, # 1 each, Refills 0, Tot. 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) Healthy child(Confirmed) Active Seasonal allergies(Confirmed) Active Diagnosis Diagnosis Type Effective Dates Health Status Clinical In formant Service Cerumen Discharge 10/20/20 impaction Diagnosis Vital Signs Most recent to oldest [Reference Range]: 1 Height 188.3 cm (10/20/20 2:23 PM) Weight 59.1 kg (10/20/20 2:23 PM) Body Mass Index [18.5-24.99] 16.67 *L* (10/20/20 2:23 PM) Blood Pressure [71-110/30-71 mm Hg] 86/42 mm Hg (10/20/20 2:23 PM) Blood pressure sites Arm, left (10/20/20 2:23 PM) Dry Weight 59.1 kg (10/20/20 2:23 PM) Social History Social History Type Response Tobacco Other: Mom reports no smoker s in the house. Sex
--- OUTSIDE RECORDS SUMMARY | 2022-05-04 18:10 | XMS_ITS | Continuity of Care Document ---
:2002 Author Organization [employer] Address Unavailable , Care Team Providers Name Role Phone Jeanette JIN, Vineet Simpson Primary Care Physician Encounter [facility] NBR [id number] Date(s): 06/22/21 - 06/29/21 [employer] Encounter Diagnosis Personal history of COVID-19 (Discharge Diagnosis) - 06/22/21 PFS (patellofemoral syndrome) (Discharge Diagnosis) - 06/22/21 Attending Physician: Janette Olvera Allergies, Adverse Reactions, [...] Pediatric Vaccine9 07/23/12 Given Hepatitis A Pediatric Ykstyqs91 07/14/11 Given Influenza Inactive (IM) (oldterm)11 12/01/08 Given Influenza Inactive (IM) (oldterm) 01/03/08 Given Influenza Inactive (IM) (oldterm) 12/02/03 Given Influenza Inactive (IM) (oldterm) 02/27/03 Given Varicella Virus Slzbrnn20 12/01/08 Given Varicella Virus Vaccine 06/05/03 Given [...] Given 1Result Comment: [01/30/2017] [facility] [address] 912 412Result Comment: [12/26/2014] SAS3 Admin Note: vis 10/05/10 vis given Admin Note: Fluzone VIS-10/20/200914790Dscsom Comment: [08/19/2013] KENDELL MARTINEZ IW3Jcxouw Comment: [12/26/2014] TCZ1Yivwcw Comment: [10/10/2014] MJ7Milmia Comment: [08/19/2013] KENDELL MARTINEZ MD9Admin Note: VIS 01/04/201110 Admin Note: VIS 01/04/2011837007Bjvcc Note: VIS 10/21/2008106514Hypqc Note: VIS 03/22/06 Medications Adderall XR 10 mg oral capsule, extended release 1 capsule = 10 mg, By Mouth, Daily in AM, # 30 capsule, 0 Refills, Maintenance, 04/21/21 16:00:00 EST, ER Capsule, [facility]/pharmacy #[id number], Partial fill upon patient request [...] Gm, 0 Refills, Maintenance, 06/22/21 13:33:00 EDT, [place], Partial fill upon patient request if the prescription is for a schedule II opioid drug. 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) Asthma, mild Active intermittent(Confirmed)(Stable) Well adult exam(Confirmed) Active Seasonal Allergic Rhinitis(Confirmed) Active Diagnosis Diagnosis Type Effective Dates Health Status Clinical In formant Service Personal history Discharge 06/22/21 of COVID-19 Diagnosis PFS Discharge 06/22/21 (patellofemoral Diagnosis syndrome) Vital Signs Most recent to oldest [Reference Range]: 1 Height 189 cm (06/22/21 1:30 PM) Weight 58.5 kg (06/22/21 1:30 PM) Body Mass Index [18.5-24.99] 16.38 *L* (06/22/21 1:30 PM) Blood Pressure [90-138/55-84 mm Hg] 124/80 mm Hg (06/22/21 1:30 PM) Blood pressure sites Arm, right (06/22/21 1:30 PM) Dry Weight 58.5 kg (06/22/21 1:30 PM) Weight Obtained Via Standing scale (06/22/21 1:30 PM) Dry Weight Obtained Via Standing scale (06/22/21 1:30 PM) Social History Social History Type Response Tobacco Tobacco user in household: Y es. Sex
--- OUTSIDE RECORDS SUMMARY | 2022-05-04 18:10 | XMS_ITS | Continuity of Care Document ---
:2002 Author Organization [facility] Address [address] [place] [address]- Care Team Providers Name Role Phone Vineet eRid MD Primary Care Physician Encounter [facility] NBR [id number] Date(s): 08/30/19 - 08/30/[address] [address]- [facility] Discharge Disposition: A-D/C Home Attending Physician: Bassam Smith MD Admitting Physician: Bassam Smith MD Referring Physician: Not on Staff, Referring MD Allergies, Adverse Reactions, Alerts Substance Reaction [...] Pediatric Vaccine9 07/23/12 Given Hepatitis A Pediatric Nxtwqro32 07/14/11 Given Influenza Inactive (IM) (oldterm)11 12/01/08 Given Influenza Inactive (IM) (oldterm) 01/03/08 Given Influenza Inactive (IM) (oldterm) 12/02/03 Given Influenza Inactive (IM) (oldterm) 02/27/03 Given Varicella Virus Caslssr39 12/01/08 Given Varicella Virus Vaccine 06/05/03 Given [...] Comment: [08/19/2013] KENDELL MARTINEZ MD2Result Comment: [01/30/2017] [facility] [address] 912 413Result Comment: [12/26/2014] LAH1Vjjij Note: vis 10/05/10 vis given Admin Note: Fluzone VIS-10/20/200907975Cmplnn Comment: [12/26/2014] ZOX4Lheazi Comment: [10/10/2014] AB8Xmkgyc Comment: [08/19/2013] KEDNELL MARTINEZ XK7Lmrsz Note: VIS 01/04/2011700000Cgdlc Note: VIS Admin Note: VIS 10/21/2008459908Gyivv Note: VIS 03/22/06 Medications Aerochamber See Instructions, [...] Gm, 0 Refills, Maintenance, 08/18/18 10:45:07 EDT, [place], 1 sprays Nares, Both 2 times a day,PRN:allergy Start Date: 08/18/18 Status: OrderedProAir HFA 90 mcg/inh inhalation aerosol with adapter 2, puffs, Inhalation, Every 4 hours, PRN, # 1 each, Refills 0, Tot. Refills 0, Maintenance, 05/28/1917:13:08 EDT, Route to Pharmacy Electronically, [id number], [facility]/pharmacy #[id number] Start Date: 05/28/18 Status: OrderedQnasl [...] hyperactivity(Confirmed) Healthy child(Confirmed) Active Seasonal allergies(Confirmed) Active Vital Signs Most recent to oldest [Reference Range]: 1 Height 191 cm (08/30/19 12:05 PM) Weight 58.1 kg (08/30/19 12:05 PM) Oxygen Saturation [94-100 %] 99 % (08/30/19 12:05 PM) Pulse Rate [55-90 bpm] 97 bpm *H* (08/30/19 12:05 PM) Blood Pressure [80-130/50-80 mm Hg] 95/64 mm Hg (08/30/19 12:05 PM) Respiratory Rate [16-30 br/min] 16 br/min (08/30/19 12:05 PM) Temperature [96.8-100.4 DegF] 98.8 DegF (08/30/19 12:05 PM) Mode of Delivery (Oxygen) Room air (08/30/19 12:05 PM) Temperature Route Temporal (08/30/19 12:05 PM) Dry Weight 58.1 kg (08/30/19 12:05 PM) Weight Obtained Via Standing scale (08/30/19 12:05 PM) Social History Social History Type Response Tobacco Other: Mom reports no smoker s in the house. Sex
--- OUTSIDE RECORDS SUMMARY | 2022-05-04 18:10 | XMS_ITS | Continuity of Care Document ---
:2002 Author Organization [employer] Address Unavailable , Care Team Providers Name Role Phone Vineet Reid MD Primary Care Physician Encounter [facility] Date(s): 12/03/20 - 01/02/21 [employer] Allergies, Adverse Reactions, Alerts Substance Reaction Severity [...] Pediatric Vaccine9 07/23/12 Given Hepatitis A Pediatric Ztgwrnk81 07/14/11 Given Influenza Inactive (IM) (oldterm)11 12/01/08 Given Influenza Inactive (IM) (oldterm) 01/03/08 Given Influenza Inactive (IM) (oldterm) 12/02/03 Given Influenza Inactive (IM) (oldterm) 02/27/03 Given Varicella Virus Blcjogt52 12/01/08 Given Varicella Virus Vaccine 06/05/03 Given [...] (old term) 02 Given 1Result Comment: [01/30/2017] [facility] [address] 912 412Result Comment: [12/26/2014] SAS3 Admin Note: vis 10/05/10 vis given Admin Note: Fluzone VIS-10/20/200951586Xgadaw Comment: [08/19/2013] KENDELL MARTINEZ MD6Result Comment: [12/26/2014] ITQ4Nuzcrt Comment: [10/10/2014] PV8Scgukn Comment: [08/19/2013] KENDELL MARTINEZ MD9Admin Note: VIS 01/04/201110 Admin Note: VIS 01/04/2011151968Gneto Note: VIS 10/21/2008048414Eqqal Note: VIS 03/22/06 Medications Pepcid 20 mg [...]
--- OUTSIDE RECORDS SUMMARY | 2022-05-04 18:10 | XMS_ITS | Continuity of Care Document ---
:2002 Author Organization [facility] Address [address] [address]- Care Team Providers Name Role Phone Vineet Reid MD Primary Care Physician Encounter [facility] Date(s): 09/12/19 - 10/12/[address] [facility] [address] [place] [address]- [facility] Allergies, Adverse Reactions, Alerts Substance Reaction Severity [...] Pediatric Vaccine9 07/23/12 Given Hepatitis A Pediatric Jelskrb76 07/14/11 Given Influenza Inactive (IM) (oldterm)11 12/01/08 Given Influenza Inactive (IM) (oldterm) 01/03/08 Given Influenza Inactive (IM) (oldterm) 12/02/03 Given Influenza Inactive (IM) (oldterm) 02/27/03 Given Varicella Virus Ikcaxav59 12/01/08 Given Varicella Virus Vaccine 06/05/03 Given [...] Comment: [08/19/2013] KENDELL MARTINEZ MD2Result Comment: [01/30/2017] [facility] [address] 912 413Result Comment: [12/26/2014] AFF6Gsikq Note: vis 10/05/10 vis given Admin Note: Fl[employer] VIS-10/20/200974336Tqbacg Comment: [12/26/2014] DXM8Jbyuiy Comment: [10/10/2014] TB6Fmltns Comment: [08/19/2013] KENDELL MARTINEZ MD9Admin Note: VIS 01/04/2011741324Tzyuf Note: VIS Admin Note: VIS Admin Note: [...] Gm, 0 Refills, Maintenance, 08/18/18 10:45:07 EDT, [place], 1 sprays Nares, Both 2 times a day,PRN:allergy Start Date: 08/18/18 Status: OrderedProAir HFA 90 mcg/inh inhalation aerosol with adapter 2, puffs, Inhalation, Every 4 hours, PRN, # 1 each, Refills 0, Tot. Refills 0, Maintenance, 05/28/1917:13:08 EDT, Route to Pharmacy Electronically, [id number], [facility]/pharmacy #[id number] Start Date: 05/28/18 Status: [...] 0 Refills, Maintenance, 05/24/19 15:50:00 EDT, Aerosol, [facility]/pharmacy #[id number], 188, cm, 03/13/2... 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 Sex
--- OUTSIDE RECORDS SUMMARY | 2022-05-04 18:10 | XMS_ITS | Continuity of Care Document ---
:2002 Author Organization [employer] Address Unavailable , Care Team Providers Name Role Phone Vineet Reid MD Primary Care Physician Encounter [facility] Date(s): 12/02/20 - 01/01/21 [employer] Attending Physician: Admtr, Ar8 Allergies, Adverse Reactions, [...] Pediatric Vaccine9 07/23/12 Given Hepatitis A Pediatric Tbmukwj05 07/14/11 Given Influenza Inactive (IM) (oldterm)11 12/01/08 Given Influenza Inactive (IM) (oldterm) 01/03/08 Given Influenza Inactive (IM) (oldterm) 12/02/03 Given Influenza Inactive (IM) (oldterm) 02/27/03 Given Varicella Virus Bgcimuq18 12/01/08 Given Varicella Virus Vaccine 06/05/03 Given [...] 02 Given 1Result Comment: [01/30/2017] [facility] [place] 2[facility] [address] 912 412Result Comment: [12/26/2014] SAS3 Admin Note: vis 10/05/10 vis given Admin Note: Fluzone VIS-10/20/200995819Aprzzv Comment: [08/19/2013] KENDELL MARTINEZ MD6Result Comment: [12/26/2014] UMV1Btqphg Comment: [10/10/2014] TX1Rpxtmw Comment: [08/19/2013] KENDELL MARTINEZ MD9Admin Note: VIS 01/04/201110 Admin Note: VIS 01/04/2011425630Aeumu Note: VIS Admin Note: VIS 03/22/06 Medications [...]
--- OUTSIDE RECORDS SUMMARY | 2022-05-04 18:10 | XMS_ITS | Continuity of Care Document ---
:2002 Author Organization [employer] Address Unavailable , Care Team Providers Name Role Phone Joy Kelly MD Primary Care Phys[id number] Date(s): 07/21/21 - 07/28/21 [employer] Encounter Diagnosis Attention deficit disorder of childhood with hyperactivity (Discharge Diagnosis) - 07/21/21 Attending Physician: Janette Olvera Allergies, Adverse Reactions, [...] Pediatric Vaccine9 07/23/12 Given Hepatitis A Pediatric Qmagqys92 07/14/11 Given Influenza Inactive (IM) (oldterm)11 12/01/08 Given Influenza Inactive (IM) (oldterm) 01/03/08 Given Influenza Inactive (IM) (oldterm) 12/02/03 Given Influenza Inactive (IM) (oldterm) 02/27/03 Given Varicella Virus Wxgnyrg02 12/01/08 Given Varicella Virus Vaccine 06/05/03 Given [...] 1Result Comment: [01/30/2017] [facility] [address] 912 412Result Comment: [12/26/2014] SAS3 Admin Note: vis 10/05/10 vis given Admin Note: Fluzone VIS-10/20/200997590Ghgcfl Comment: [08/19/2013] KENDELL MARTINEZ MD6Result Comment: [12/26/2014] ENA4Rfwqxy Comment: [10/10/2014] LR4Qfecya Comment: [08/19/2013] KENDELL MARTINEZ MD9Admin Note: VIS 01/04/201110 Admin Note: VIS 01/04/2011962682Vxxyj Note: VIS 10/21/2008366429Iizun Note: VIS 03/22/06 Medications Adderall XR 10 mg oral capsule, extended release 1 capsule = 10 mg, By Mouth, Daily in AM, # 30 capsule, 0 Refills, Maintenance, 04/21/21 16:00:00 EST, ER Capsule, [id number], Partial fill upon patient request if the prescription is for a schedule II opioid drug., 1 capsule By Mouth Daily in... Start Date: 04/21/21 Status: OrderedAdderall XR 15 mg oral capsule, extended release 1 capsule = 15 mg, By Mouth, Daily in AM, For ADHD, # 30 capsule, 0 Refills, Maintenance, 07/21/21 14:06:00 EDT, ER Capsule, [id number], Partial [...] Gm, 0 Refills, Maintenance, 06/22/21 13:33:00 EDT, [place], Partial fill upon patient request if the [...] Dates Health Clinical Infor mant Status Service Attention deficit Discharge 07/21/21 disorder of Diagnosis childhood with hyperactivity Social History Social History Type Response Tobacco Tobacco user in household: Y es. Sex
--- OUTSIDE RECORDS SUMMARY | 2022-05-04 18:11 | XMS_ITS | Continuity of Care Document ---
:2002 Author Organization [facility] [employer] Address Unavailable , Care Team Providers Name Role Phone Joy Kelly MD Primary [id number] Date[facility]s): 08/18/21 - 08/25/21 [facility] Encounter Diagnosis Attention deficit disorder of childhood with hyperactivity (Discharge Diagnosis) - 08/18/21 Attending Physician: Janette Olvera Allergies, Adverse Reactions, [...] Pediatric Vaccine9 07/23/12 Given Hepatitis A Pediatric Enuwjuv61 07/14/11 Given Influenza Inactive (IM) (oldterm)11 12/01/08 Given Influenza Inactive (IM) (oldterm) 01/03/08 Given Influenza Inactive (IM) (oldterm) 12/02/03 Given Influenza Inactive (IM) (oldterm) 02/27/03 Given Varicella Virus Unjvkce22 12/01/08 Given Varicella Virus Vaccine 06/05/03 Given [...] (old term) 02 Given 1Result Comment: [01/30/2017] [facility] [address] 912 412Result Comment: [12/26/2014] SAS3 Admin Note: vis 10/05/10 vis given Admin Note: [employer] VIS-10/20/200971409Ftbiqq Comment: [08/19/2013] KENDELL MARTINEZ MD6Result Comment: [12/26/2014] DUW8Abutjr Comment: [10/10/2014] VN4Fusxlw Comment: [08/19/2013] KENDELL MARTINEZ MD9Admin Note: VIS 01/04/201110 Admin Note: VIS 01/04/2011534339Cerqx Note: VIS 10/21/2008090774Bzlpm Note: VIS 03/22/06 Medications Adderall XR 15 [...] Gm, 0 Refills, Maintenance, 06/22/21 13:33:00 EDT, [place], Partial fill upon patient request if the [...] Infor mant Status Service Attention deficit Discharge 08/18/21 disorder of Diagnosis childhood with hyperactivity Social History Social History Type Response Tobacco Tobacco user in household: Y es. Sex
--- NOTE | 2022-05-04 18:27 | PC.NURSE ---
ATTEMPTED TO CALL PATIENT INTO ED ROOM 13. NO ANSWER IN WAITING ROOM. LOOKED OUTSIDE FOR PATIENT. NO ANSWER OUTSIDE ED.
== END 2022-05-04 19:31 | disposition left against medical advice (07) ==
PROVIDERS: Emergency Provider Emergency Medicine
DX: R06.02 Shortness of breath (principal); J45.909 Unspecified asthma, uncomplicated
CPT/HCPCS: 93005; 99283

== ENCOUNTER 2024-06-15 11:44 | Emergency (ER) | payer OTHER, SELFPAY ==
--- NOTE | ~2024-06-15 | XR_ITS ---
CLINICAL HISTORY: cough, SOB 2 view chest x-ray Comparison: None Findings: The lungs are clear. Heart size is normal. No acute fracture. IMPRESSION: 1. No acute findings. This document has been electronically signed by: Mariela Bah MD on 06/15/2024 14:29:16
--- NOTE | 2024-06-15 12:02 | ED.URI ---
HPI - URI/Sore Throat General Chief Complaint: Upper Respiratory Symptoms Stated Complaint: covid +, seen at yesterday Time Seen by Provider: 06/15/24 12:34 Source: patient Mode of arrival: ambulatory Limitations: no limitations History of Present Illness ED Provider: AC DENSON PA-C HPI Narrative: 24 year old male with pmhx significant for asthma presents to the ED today for evaluation of worsening cough, congestion and shortness of breath. Reports evaluation at yesterday after feeling unwell x days. He was diagnosed with COVID at that time and discharged home with symptomatic treatment. Admits to continued shortness of breath and associated cough productive of yellow/brown sputum. He is having to use his inhaler more frequently. 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 Denies fever, chills, sore throat, chest pain, N/V. Related Data Previous Rx's ?Medication ?Instructions ?Recorded azithromycin 250 mg tablet See Rx Instructions PO .COMPLEX #6 06/15/24 tabs prednisone 20 mg tablet 40 mg (2 x 20 mg) PO DAILY 5 days 06/15/24 #10 tabs Allergies Allergy/AdvReac Type Severity Reaction Status Date / Time No Known Allergies Allergy Verified 06/15/24 12:18 Review of Systems Review of Systems: Yes all other systems are reviewed and are negative PMFSH Past Medical History Attestation statement: The following information was validated with the patient. Source: old records reviewed and nursing notes reviewed Social History Social History Smoked in Last 30 Days: No Use of substances other than those prescribed or required for medical reasons: No Advance Directives: No Advance Directives Information Provided: Yes Do you have a plan to hurt others: No Plan Physical Exam Vital Signs: Vital Signs: Last Vital Signs Temp 98.0 F 06/15/24 15:31 Pulse 80 06/15/24 15:31 Resp 20 06/15/24 15:31 BP 102/67 06/15/24 15:31 Pulse Ox 98 06/15/24 15:31 O2 Del Method Room Air 06/15/24 15:31 BMI result Body Mass Index 15.3 vital signs stable, afebrile General: Well appearing, in no acute distress. Skin: Warm, dry, intact. No rashes or lesions. Head: Normocephalic, atraumatic. EENT: Hearing is intact b/l. Conjunctiva clear. PERRLA. EOM intact. Moist mucous membranes.? Neck: Supple without LAD Cardiac: Chest wall symmetric. RRR. Lungs: normal respiratory effort. No accessory muscle use. No tripoding. Congested cough. Diffuse expiratory wheezes, more so to lung bases. Abdomen: Soft, non-tender, non-distended. No rebound tenderness or guarding. Positive BS x4. Back: No midline spinous or paraspinal tenderness. No step off deformity. Ext: Upper and lower extremities atraumatic, without tenderness, deformity, swelling or erythema Neuro: AOx3. Normal speech. Ambulating with steady gait. Course Course Course Narrative: This is a Rapid Medical Exam performed in triage by María Moore PA-C. Full HPI, ROS and PE to be performed by primary ED provider. 24 year old male PMHx asthma presenting to the ED c/o sickness x days and worsening coughing/congestion. Reports went to urgent care yesterday and tested + covid. 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 Denies fevers. PE: diffuse expiratory wheezes. No resp distress. Talking in full sentences Plan: CXR, bronch protocol Reevaluation(s) Reevaluation #1: CBC with slight leukocytosis to 12, no left shift. No anemia. H&H stable. Chemistry without acute electrolyte abnormality requiring intervention. BUN slightly elevated to 19, normal creatinine. Alk phos elevated to 154. LFTs otherwise wnl. negative covid, flu, rsv. cxr without infiltrate or consolidation to suggest pneumonia. > patient treated with albuterol, IV solumedrol and IV mag. lungs clear to auscultation. patient reports significant improvement in symptoms. not hypoxic. plan to treat for asthma exacerbation with ?bronchitis. prednisone and azithromycin sent to pharmacy. Patient has remained stable throughout ED visit today. Discussed worrisome signs and symptoms and when to return to the ED. All questions answered at this time. Patient is agreeable with disposition and stable for discharge. Medications Administered Discontinued Medications Generic Name Dose Route Start Last Admin Trade Name Freq PRN Reason Stop Dose Admin Albuterol Sulfate 5 mg/ 0 mg 06/15/24 12:47 06/15/24 12:56 Albuterol/Ipratropium 3 ml INHALE 06/15/24 12:48 7.5 each ONCE ONE Administration Magnesium Sulfate 2 gm in 50 mls @ 150 mls/hr 06/15/24 13:23 06/15/24 14:17 Magnesium Sulfate/H2o IV 06/15/24 13:42 Infused ONCE ONE Infusion Methylprednisolone Sodium Succinate 125 mg 06/15/24 13:23 06/15/24 13:47 Methylprednisolone Sod Succ 125 Mg/2 Ml Vial IVPUSH 06/15/24 13:24 125 mg ONCE ONE Administration Medical Decision Making Medical Decision Making [facility] Narrative: 24 year old male with pmhx significant for asthma presents to the ED today for evaluation of worsening cough, congestion and shortness of breath. mildly hypertensive, vitals otherwise wnl. satting 99% on RA. well appearing, in NAD. on exam, there is normal respiratory effort. No accessory muscle use. No tripoding. Congested cough. Diffuse expiratory wheezes, more so to lung bases. no pitting edema. no jvd. RRR. Differential diagnosis includes viral syndrome, bronchitis, pneumonia, asthma exacerbation Presentation not consistent with chronic causes of cough (including GERD, postnasal discharge, medication side effect, CHF, lung cancer or mass). PERC 0. Plan labs, viral swabs, cxr, breathing treatment, IV steroids. Differential Diagnosis Differential Diagnoses: The differential diagnosis associated with the presentation includes as above. Admission/Observation not indicated Lab Data [facility] Lab Attestation statement: I reviewed the patient's lab results. As above 06/15/24 13:42 06/15/24 13:42 Labs: Lab Results 06/15/24 06/15/24 Range/Units 13:42 14:10 WBC 12.0 H (4.8-10.8) X10*3/uL RBC 5.08 (4.60-5.80) X10*6/uL Hgb 15.0 (14.0-18.0) g/dl Hct 41.9 L (42.0-52.0) % MCV 82.5 (80.0-98.0) fL MCH 29.5 (27.0-33.0) pg MCHC 35.8 (31.0-36.0) g/dl RDW 12.6 (11.0-16.0) % Plt Count 200 (160-400) X10*3/uL MPV 9.2 L (9.4-12.4) fL Immature Gran % (Auto) 0.2 (0.0-0.4) % Neut % (Auto) 59.9 (45-73) % Lymph % (Auto) 30.5 (20-40) % Dickens % (Auto) 6.5 (2-11) % Eos % (Auto) 2.4 (0-4) % Baso % (Auto) 0.5 (0-2) % Lymph # (Auto) 3.7 (1.2-4.9) X10*3/uL Dickens # (Auto) 0.8 (0.1-1.2) X10*3/uL Eos # (Auto) 0.3 (0.0-0.4) X10*3/uL Baso # (Auto) 0.1 (0.0-0.2) X10*3/uL Abs Immat Gran (auto) 0.03 (0.00-0.03) X10*3/uL Absolute Neuts (auto) 7.2 (2.0-8.3) x10*3/uL Absolute Nucleated RBC 0.000 (0.0-0.012) X10*3/uL Nucleated RBC % (auto) 0.0 (0.0-0.2) /100WBC Sodium 141 (135-145) mmol/L Potassium 3.4 (3.3-5.1) mmol/L Chloride 103 (96-108) mmol/L Carbon Dioxide 24 (22-29) mmol/L Anion Gap 17 (12-20) BUN 19 H (9-16) mg/dL Creatinine 0.81 (0.5-1.4) mg/dL Estim Creat Clear Calc 115.1 Estimated GFR > 60 Random Glucose 103 (60-115) mg/dL Calcium 9.5 (8.4-10.2) mg/dL Magnesium 1.9 (1.6-2.6) mg/dL Total Bilirubin 0.9 (0.0-1.0) mg/dL AST 36 (5-37) U/L ALT 38 (0-40) U/L Alkaline Phosphatase 154 H (39-117) U/L Total Protein 8.4 H (6.5-8.0) g/dL Albumin 5.0 (3.5-5.0) g/dL Influenza Type A (PCR) NEGATIVE (Negative) Influenza Type B (PCR) NEGATIVE (Negative) RSV RNA Qual (PCR) NEGATIVE (Negative) SARS-CoV-2 RNA (RT-PCR) NEGATIVE (Negative) Independent Interpretation I performed an independent interpretation of an: Plain X-Ray Interpretation: Chest x-ray without infiltrate or consolidation Radiology Impression Discussion of test interpretation with radiology: I have reviewed the radiologist's reading. Radiologist Impression: Procedure(s): XR chest 2V Accession Number(s): [id number] cc: Physician,Unknown ; María Moore~ CLINICAL HISTORY: cough, SOB 2 view chest x-ray Comparison: None Findings: The lungs are clear. Heart size is normal. No acute fracture. IMPRESSION: 1. No acute findings. This document has been electronically signed by: Mariela Bah MD on 06/15/2024 14:29:16 Prescription Management I considered prescription management with: Antibiotic (Azithromycin) and Other (Prednisone) Chronic Conditions Patient?s care impacted by: Other (asthma) Social Determinants Patient?s care significantly limited by Social Determinants of Health including: Other Social Determinant of Health Critical Care Time Critical Care Time Critical Care Time: No Discharge Plan Discharge Clinical Impression: Asthma exacerbation, Bronchitis Patient Disposition: Home, Self-Care Instructions: Azithromycin (By mouth), Asthma (ED) Additional Instructions: You were evaluated in the ED today for shortness of breath. Your blood work today is reassuring. You tested negative for COVID, flu, RSV. Your symptoms improved with breathing treatment and IV steroids today. I am treating you for asthma exacerbation and possible bronchitis. Prednisone has been sent to your pharmacy for treatment. Start this tomorrow as you already received a dose in the ED today. Azithromycin as an antibiotic. Take this as prescribed over the next 5 days. Continue your home inhaler as needed. If you find you are using this more often without relief, please return to the ED as you may require further treatment. Follow up with your primary care provider. Return with any new or worsening symptoms. In the case of an emergency call 911. Prescriptions: New azithromycin 250 mg tablet See Rx Instructions PO .COMPLEX Qty: 6 0RF Rx Instructions: For 250 mg dose pack: take 500 mg today (day 1), then 250 mg for 4 days (days 2-5) prednisone 20 mg tablet 40 mg PO DAILY 5 Days Qty: 10 0RF Referrals: Physician,Unknown J [Primary Care Provider] - Interventions: ED Discharge Assessment Last Done: 06/15/24 15:31 Discharge Date/Time: 06/15/24 15:31 Print Language: Guamanian
[2024-06-15 12:15] VITALS: BP 135/90; PULSE 99; RESP 20; TEMP 36.6; O2SAT 99; BMI 15.3
[2024-06-15] MEDS: Albuterol Sulfate 5 MG, Albuterol/Iprat 2.5/0.5MG 3 ML 3 ML INHALE (12:56)
[2024-06-15 12:58] VITALS: PULSE 86; RESP 16; O2SAT 100
[2024-06-15] MEDS: Magnesium Sulfate/H2O 2 GM/50 ML PIGGYBACK IV (13:46)
[2024-06-15 13:47] VITALS: BP 102/67; PULSE 80; RESP 18; TEMP 36.7; O2SAT 98
[2024-06-15] MEDS: methylPREDNISolone Sod Succ 125 MG/2 ML VIAL IVPUSH (13:47)
[2024-06-15 13:48] LABS: MANUAL DIFF FLAG NO
[2024-06-15 13:58] LABS: Basophils Absolute Auto 0.1 X10*3/uL (0.0-0.2); Basophils Percent Auto 0.5 % (0-2); Eosinophils Absolute Auto 0.3 X10*3/uL (0.0-0.4); Eosinophils Percent Auto 2.4 % (0-4); Hematocrit 41.9 % (42.0-52.0); Imm Gran Abs Auto 0.03 X10*3/uL (0.00-0.03); Imm Gran Pct Auto 0.2 % (0.0-0.4); Lymphocytes Absolute Auto 3.7 X10*3/uL (1.2-4.9); Lymphocytes Percent Auto 30.5 % (20-40); Mean Corpuscular HGB Conc 35.8 g/dl (31.0-36.0); Mean Corpuscular Hemoglobin 29.5 pg (27.0-33.0); Mean Corpuscular Volume 82.5 fL (80.0-98.0); Mean Platelet Volume 9.2 fL (9.4-12.4); Monocytes Absolute Auto 0.8 X10*3/uL (0.1-1.2); Monocytes Percent Auto 6.5 % (2-11); Neutrophils Absolute Auto 7.2 x10*3/uL (2.0-8.3); Neutrophils Percent Auto 59.9 % (45-73); Platelet Count 200 X10*3/uL (160-400); Red Blood Count 5.08 X10*6/uL (4.60-5.80); Red Cell Distribution Width 12.6 % (11.0-16.0)
[2024-06-15 14:03] LABS: Alanine Aminotransferase 38 U/L (0-40); Alkaline Phosphatase 154 U/L (39-117); Anion Gap 17 (12-20); Aspartate Amino Transferase 36 U/L (5-37); Bilirubin Total 0.9 mg/dL (0.0-1.0); Blood Urea Nitrogen 19 mg/dL (9-16); Calcium 9.5 mg/dL (8.4-10.2); Carbon Dioxide 24 mmol/L (22-29); Chloride 103 mmol/L (96-108); Creatinine Clr Calc Pharmacy 115.1; Estimated Glomerular Filt Rate > 60; Glucose Random 103 mg/dL (60-115); Magnesium 1.9 mg/dL (1.6-2.6); Potassium 3.4 mmol/L (3.3-5.1); Sodium 141 mmol/L (135-145); Total Protein 8.4 g/dL (6.5-8.0)
[2024-06-15 15:00] LABS: Influenza A PCR NEGATIVE (Negative); Influenza B PCR NEGATIVE (Negative); Resp Syncy Virus RNA Qual PCR NEGATIVE (Negative); SARS COV2 PCR INHOUSE NEGATIVE (Negative)
[2024-06-15 15:20] VITALS: O2SAT 98
[2024-06-15 15:31] VITALS: BP 102/67; PULSE 80; RESP 20; TEMP 36.7; O2SAT 98
== END 2024-06-15 15:31 | disposition home or self-care (01) ==
PROVIDERS: Physician Assistant Medical; Emergency Provider Emergency Medicine Emergency Medical Services
DX: J45.901 Unspecified asthma with (acute) exacerbation (principal); J40 Bronchitis, not specified as acute or chronic; R06.02 Shortness of breath; Z03.818 Encounter for observation for suspected exposure to other biological agents ruled out
CPT/HCPCS: 0241U; 36415; 71046; 80053; 83735; 85025; 94640; 96365; 96375; 99284; 99285; J2919; J3475

== ENCOUNTER → 2024-06-15 12:18 | Outpatient (BNV) | payer OTHER, SELFPAY | PROVIDERS: Emergency Provider Emergency Medicine Emergency Medical Services; Visit Provider Radiology Diagnostic Radiology | DX: R06.02 Shortness of breath (principal); R05.9 Cough, unspecified | CPT/HCPCS: 71046 ==

== ENCOUNTER 2025-01-12 11:48 | Emergency (ER) | payer OTHER, SELFPAY ==
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
[2025-01-12 12:05] VITALS: BP 104/58; PULSE 105; RESP 16; TEMP 36.3; O2SAT 99; BMI 15.7
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
[2025-01-12 14:58] VITALS: BP 104/58; PULSE 105; RESP 16; TEMP 36.3; O2SAT 99
== END 2025-01-12 14:58 | disposition home or self-care (01) ==
PROVIDERS: Emergency Provider Emergency Medicine
DX: S20.211A Contusion of right front wall of thorax, initial encounter (principal); S09.90XA Unspecified injury of head, initial encounter; M54.2 Cervicalgia; R51.9 Headache, unspecified; M25.511 Pain in right shoulder; R07.89 Other chest pain; V43.52XA Car driver injured in collision with other type car in traffic accident, initial encounter; Y93.9 Activity, unspecified; Y92.410 Unspecified street and highway as the place of occurrence of the external cause; Y99.8 Other external cause status
CPT/HCPCS: 70450; 71101; 72125; 73030; 99282; 99284

== ENCOUNTER → 2025-01-12 12:06 | Outpatient (BNV) | payer OTHER, SELFPAY | PROVIDERS: Emergency Provider Emergency Medicine; Visit Provider Radiology Diagnostic Radiology | DX: M54.2 Cervicalgia (principal); R51.9 Headache, unspecified; R07.89 Other chest pain; Z04.3 Encounter for examination and observation following other accident; V89.2XXA Person injured in unspecified motor-vehicle accident, traffic, initial encounter | CPT/HCPCS: 70450; 71101; 72125; 73030 ==

== ENCOUNTER 2025-01-27 11:41 | Outpatient (AMB) | payer OTHER, SELFPAY ==
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
[2025-01-27 11:52] VITALS: BMI 15.7
== END 2025-01-27 12:08 | disposition home or self-care (01) ==
LOC: HO.HOS 11:41
PROVIDERS: Visit Provider Physician Assistant
DX: M25.311 Other instability, right shoulder (principal)
CPT/HCPCS: 99203; G2211

== ENCOUNTER 2025-02-14 11:36 | Outpatient (AMB) | payer OTHER, SELFPAY ==
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
[2025-02-14 11:42] VITALS: BMI 15.4
== END 2025-02-14 13:10 | disposition home or self-care (01) ==
PROVIDERS: Visit Provider Physical Medicine & Rehabilitation
DX: M95.8 Other specified acquired deformities of musculoskeletal system (principal); M79.18 Myalgia, other site
CPT/HCPCS: 99204

== ENCOUNTER 2025-02-14 11:36 | Outpatient (REF) | payer OTHER, SELFPAY ==
--- NOTE | ~2025-02-14 | XR_ITS ---
EXAMINATION: XR SCAPULA RIGHT HISTORY: M95.8 - Other specified acquired deformities of musculoskeletal system COMPARISON: Correlation is made with plain films of the right shoulder dated 01/12/2025. FINDINGS: Two views of the right scapula are submitted. Osseous mineralization is normal. There is no fracture or lytic lesion. The glenohumeral and acromioclavicular joints are maintained. XR/XR scapula RT IMPRESSION: Unremarkable examination of the right scapula. Electronically signed by: Bassam Marks MD 02/14/2025 12:33 PM [facility]
== END 2025-02-14 11:37 | disposition home or self-care (01) ==
LOC: HO.HOSX 11:36
PROVIDERS: Visit Provider Physical Medicine & Rehabilitation
DX: M95.8 Other specified acquired deformities of musculoskeletal system (principal); M79.18 Myalgia, other site
CPT/HCPCS: 73010

== ENCOUNTER → 2025-02-14 12:04 | Outpatient (BNV) | payer OTHER, SELFPAY | PROVIDERS: Visit Provider Radiology Diagnostic Radiology | DX: M95.8 Other specified acquired deformities of musculoskeletal system (principal) | CPT/HCPCS: 73010 ==

== ENCOUNTER 2025-02-25 13:38 | Outpatient (REF) | payer OTHER, SELFPAY ==
--- NOTE | ~2025-02-25 | FL_ITS ---
EXAMINATION: RIGHT SHOULDER ARTHROGRAM FOR MRI. CLINICAL INFORMATION: Instability COMPARISON: X-ray 01/12/2025 TECHNIQUE/FINDINGS: The procedure, risks, benefits and alternatives were reviewed with the patient and written informed consent was obtained after all questions were answered. A 22-gauge needle was advanced into the right shoulder joint utilizing local anesthesia, sterile technique and fluoroscopic guidance. A small amount contrast was injected to confirm needle placement. Subsequently, 12 mL of a mixture of 14 mL normal saline, 3 mL Omnipaque , 3 mL of Marcaine 0.5% and 0.07 mL of gadavist were injected. FLUOROSCOPIC TIME: 17 secs NUMBER OF FLUOROSCOPIC IMAGES : 3 screen captures FL/FL arthrogram shoulder RT IMPRESSION: Fluoroscopic guided injection of the right shoulder joint for MR arthrography without complication. Electronically signed by: Chetan Haywood MD 02/25/2025 04:30 PM [facility]
--- NOTE | ~2025-02-25 | MR_ITS ---
EXAMINATION: MR SHOULDER WITH CONTRAST, RIGHT CLINICAL INFORMATION: Shoulder instability COMPARISON: None available. TECHNIQUE: MRI of the shoulder was performed following the intra-articular administration of a dilute gadolinium-containing solution (arthrogram) on a high-field scanner. FINDINGS: ROTATOR CUFF: Mild supraspinatus tendinosis. No measurable tear is seen. Infraspinatus, teres minor, subscapularis tendons are intact. No muscle atrophy or fatty infiltration. BICEPS: Intact CORACOACROMIAL ARCH: The undersurface of the acromion is mildly curved with no subacromial spur. The acromioclavicular joint is normal. LABRUM/CAPSULE: Subtle focal linear bright T1/T2 signal at the cartilage- labral interface of the posterior inferior labrum. This could represent subtle sulcus, a small tear cannot be entirely excluded. No labral tear is otherwise seen. Intact inferior capsule GLENOHUMERAL JOINT/MARROW: No fracture. No suspicious marrow signal changes. No high-grade chondral loss. No axillary lymphadenopathy MR/MR shoulder RT w con IMPRESSION: 1. Mild supraspinatus tendinosis. No measurable rotator cuff tear is seen. 2. Subtle focal linear bright T1/T2 signal at the cartilage- labral interface of the posterior inferior labrum. This could represent subtle sulcus, a small tear cannot be entirely excluded. Electronically signed by: Chetan Haywood MD 02/26/2025 03:15 PM [facility]
[2025-02-25] MEDS: Lidocaine HCl 1 % MPF 30 ML VIAL 13 ML INTRAARTIC (15:26)
== END 2025-02-25 13:39 | disposition home or self-care (01) ==
LOC: HO.XRAY 13:38
PROVIDERS: PCP Urology; Visit Provider Physician Assistant
DX: M25.311 Other instability, right shoulder (principal)
CPT/HCPCS: 23350; 73040; 73222; A9585; J2003; Q9967

== ENCOUNTER → 2025-02-25 13:39 | Outpatient (BNV) | payer OTHER, SELFPAY | PROVIDERS: PCP Urology; Visit Provider Radiology Diagnostic Ultrasound | DX: M25.311 Other instability, right shoulder (principal); M75.31 Calcific tendinitis of right shoulder | CPT/HCPCS: 73222 ==